=== PATIENT | male | born 1940 | race Caucasian/White ===

== ENCOUNTER → 2017-01-12 | Outpatient (CLI) | payer MEDICARE | END | disposition home or self-care (01) | LOC: PCVCCLINIC 12:58 | PROVIDERS: ATTEND Internal Medicine Cardiovascular Disease | DX: I10 Essential (primary) hypertension (principal); I25.10 Atherosclerotic heart disease of native coronary artery without angina pectoris; E78.00 Pure hypercholesterolemia, unspecified; R00.1 Bradycardia, unspecified; R09.89 Other specified symptoms and signs involving the circulatory and respiratory systems; R06.02 Shortness of breath; I50.9 Heart failure, unspecified; I35.0 Nonrheumatic aortic (valve) stenosis | CPT/HCPCS: 93005; G0463 ==

== ENCOUNTER → 2017-02-28 | Outpatient (CLI) | payer MEDICARE ==
[~2017-02-28] MED LIST: REGADENOSON 0.4 MG/5 ML DISP.SYRIN. IV ONE
== END | disposition home or self-care (01) ==
LOC: PCVCIMAG 08:50
PROVIDERS: ATTEND Internal Medicine Cardiovascular Disease
DX: I65.23 Occlusion and stenosis of bilateral carotid arteries (principal); I25.10 Atherosclerotic heart disease of native coronary artery without angina pectoris; Z95.5 Presence of coronary angioplasty implant and graft
CPT/HCPCS: 78452; 80061; 93005; 93017; 93880; A9500; G0463; J2785

== ENCOUNTER → 2017-09-14 | Outpatient (CLI) | payer MEDICARE | END | disposition home or self-care (01) | LOC: PCVCCLINIC 13:04 | PROVIDERS: ATTEND Internal Medicine Cardiovascular Disease | DX: I25.10 Atherosclerotic heart disease of native coronary artery without angina pectoris (principal); I10 Essential (primary) hypertension; I71.4 Abdominal aortic aneurysm, without rupture; I73.9 Peripheral vascular disease, unspecified; E78.00 Pure hypercholesterolemia, unspecified; I77.9 Disorder of arteries and arterioles, unspecified; R94.31 Abnormal electrocardiogram [ECG] [EKG]; I44.0 Atrioventricular block, first degree; R00.1 Bradycardia, unspecified; Z87.891 Personal history of nicotine dependence; Z79.82 Long term (current) use of aspirin; Z79.899 Other long term (current) drug therapy | CPT/HCPCS: 80061; 93005; G0463 ==

== ENCOUNTER → 2017-11-30 | Outpatient (CLI) | payer MEDICARE | END | disposition home or self-care (01) | LOC: PCVCIMAG 13:22 | DX: I65.23 Occlusion and stenosis of bilateral carotid arteries (principal); I73.9 Peripheral vascular disease, unspecified; K80.20 Calculus of gallbladder without cholecystitis without obstruction | CPT/HCPCS: 76700; 93880; 93925 ==

== ENCOUNTER → 2018-06-06 | Outpatient (CLI) | payer MEDICARE | END | disposition home or self-care (01) | LOC: PCVCCLINIC 15:22 | PROVIDERS: ATTEND Internal Medicine Cardiovascular Disease | DX: I25.10 Atherosclerotic heart disease of native coronary artery without angina pectoris (principal); I35.0 Nonrheumatic aortic (valve) stenosis; E78.00 Pure hypercholesterolemia, unspecified; I10 Essential (primary) hypertension; I77.9 Disorder of arteries and arterioles, unspecified; I73.9 Peripheral vascular disease, unspecified; Z87.891 Personal history of nicotine dependence; Z79.82 Long term (current) use of aspirin | CPT/HCPCS: 80061; 93005; G0463 ==

== ENCOUNTER → 2019-02-26 | Outpatient (CLI) | payer MEDICARE ==
--- NOTE | 2019-02-26 13:50 | PCVCIMAG ---
APPROVED REPORT Study performed: 02/26/2019 12:54:46 EXAM: Comprehensive 2D, Doppler, and color-flow Echocardiogram Patient Location: Echo lab Status: routine BSA: 2.04 HR: 49 bpmBP: 194/80 mmHg Rhythm: NSR Other Information Study Quality: Adequate Risk Factors: Cardiac Risk Factors: HTN, Hyperlipidemia Indications CAD Aortic Stenosis, Stent, PVD 2D Dimensions IVSd: 15.48 (7-11mm)LVOT Diam: 21.77 (18-24mm) LVDd: 53.74 mm PWd: 13.12 (7-11mm)Ascending Ao: 35.54 (22-36mm) LVDs: 45.42 (25-40mm) Left Atrium: 52.24 (27-40mm) Aortic Root: 29.18 mm LV Single Plane 4CH: 49.95 % LV Single Plane 2CH: 56.02 % Biplane EF: 54.5 % Volumes Left Atrial Volume (Systole) Single Plane 4CH: 81.25 mLSingle Plane 2CH: 68.84 mL LA ESV Index: 37.00 mL/m2 Aortic Valve AoV Peak Farzad.: 2.79 m/s AO Peak Gr.: 31.20 mmHgLVOT Max P.41 mmHg AO Mean Gr.: 16.63 mmHgLVOT Mean P.99 mmHg AO V2 Mean: 1.94 m/sLVOT Max V: 0.92 m/s AO V2 VTI: 76.69 cmLVOT Mean V: 0.68 m/s DARIUS (VTI): 1.17 vd2QSBU V1 VTI: 24.11 cm DARIUS Vmax: 1.23 cm2 SV (LVOT): 89.66 mL Mitral Valve E/A Ratio: 76.0 MV E Max Farzad.: 0.76 m/s MV A Farzad.: 0.01 m/s TDI E/Lateral E': 15.20E/Medial E': 19.00 Medial E' Farzad.: 0.04 m/s Lateral E' Farzad.: 0.05 m/s Pulmonary Vein P Vein S: 0.58 m/sP Vein A: 0.37 m/s P Vein D: 0.30 m/sP Vein A Dur.: 83.0 msec P Vein S/D Ratio: 1.93 Left Ventricle The left ventricle is normal size. There is normal LV segmental wall motion. Mild concentric left ventricular hypertrophy. Left ventricular systolic function is mildly decreased.global LVEF is 40-45%. The left ventricular diastolic function is normal. Right Ventricle The right ventricle is normal size. The right ventricular systolic function is normal. Atria Left atrium is mildly dilated. The right atrium size is normal. Aortic Valve Aortic valve is probably trileaflet. Aortic valve leaflets are moderately thickened. No aortic regurgitation is present. Peak Aortic gradient is 32mmHg. Mean gradient 9is 17mmhg with a calculated aortic valve area of 1.2cm2. Mitral Valve The mitral valve is normal in structure. Mild mitral annular calcification. Trace mitral regurgitation. No evidence of mitral valve stenosis. Tricuspid Valve The tricuspid valve is normal in structure. There is no tricuspid valve regurgitation noted. Pulmonic Valve The pulmonary valve is normal in structure. There is no pulmonic valvular regurgitation. Great Vessels The aortic root is normal in size. IVC is normal in size and collapses >50% with inspiration. Pericardium There is no pericardial effusion. <Conclusion> The left ventricle is normal size. Mild concentric left ventricular hypertrophy. Left ventricular systolic function is mildly decreased.global LVEF is 40-45%. The right ventricle is normal size. Left atrium is mildly dilated. Aortic valve is probably trileaflet. Aortic valve leaflets are moderately thickened. Peak Aortic gradient is 32mmHg. Mean gradient 9is 17mmhg with a calculated aortic valve area of 1.2cm2. The mitral valve is normal in structure. Mild mitral annular calcification. Trace mitral regurgitation. There is no tricuspid valve regurgitation noted. The aortic root is normal in size. There is no pericardial effusion.
--- NOTE | 2019-02-26 21:00 | PCVCIMAG ---
APPROVED REPORT Imaging Protocol: Rest Tc-99m/Stress Tc-99m 1 day Study performed: 02/26/2019 10:55:58 Indication: CAD, Aortic Stenosis Patient Location: Out-Patient Stress Nurse: Yennifer Moreno RN, Preethi Lindsey RN [place] Tech:Leia Montalvo [facility] Ht: 5 ft 11 in Wt: 190 lbs BSA: 2.06 m2 HR: 46 bpm BP: 194/80 mmHg BMI: 26.4 Rhythm: Marked Sinus Bradycardia, nonspecific ST-T abnormalities Medical History Medical History: Hyperlipidemia, HTN, CVD, PVD, CAD, Former Smoker Medications: Bytsolic, ASA, Atorvastatin, Lasix, Hydralazine, Mobic, Xanax Allergies: No known drug allergies Cardiac Risk Factors: Age Previous Cardiac Procedures: 2012 PCI - stent to RCA Pretest Chest Pain Characteristics: No chest pain Exercise History: Indeterminate Meds Held (24 hrs): Bytsolic Resting Data Rest SPECT myocardial perfusion imaging was performed in supine position 45 minutes following the intravenous injection of 10.5 mCi of Tc-99m Sestamibi. Time of rest injection: 1015 Date: 02/26/2019 Administration Route: IV Administration Site: Right AC Pharmacologic Stress Pharmacologic stress test was performed by injecting Regadenoson 0.4 mg IV push over 10-15 seconds immediately followed by the intravenous injection of 31.6 mCi of Tc-99m Sestamibi. Time of stress injection: 1130 Date: 02/26/2019 Administration Route: IV Administration Site: Right AC Gated Stress SPECT was performed 45 minutes after stress injection. The images were gated to evaluate regional wall motion and calculate left ventricular ejection fraction. Stress Test Details Stress Test: Pharmacologic stress testing performed using 0.4 mg of regadenoson per 5 mL given IV over 10 seconds. Reason for pharmacologic stress test: physical limitation. HRMax Heart Rate (APMHR): 140 bpm Resting HR: 46 bpmTarget HR (85% APMHR): 119 bpm Max HR Achieved: 67 bpm % of APMHR: 47 Recovery HR: 61 bpm BP Resting BP: 194/80 mmHg Max BP: 178/73 mmHg Recovery BP: 155/69 mmHg ECG Resting ECG: Marked Sinus Bradycardia, nonspecific ST-T abnormalities Stress ECG: Sinus Rhythm, nonspecific ST-T abnormalities Arrhythmia: None Recovery ECG: Sinus Rhythm, nonspecific ST-T abnormalities Clinical Reason for Termination: Completed protocol Stress Symptoms: Dyspnea Exercise duration: 0 min 55 sec Symptoms resolved with caffeine. Stress ECG Conclusion ECG: Non-ischemic Study Quality Study: Good Study Data Post stress, the left ventricular ejection was 38%.. SSS: 0 SRS: 0 SDS: 0 TID = 1.16. Perfusion Small sized area of moderate reversible ischemia involving the apical inferior left ventricle consistent with a right coronary artery distribution is better seen than on February 2017 study. Wall Motion Moderately decreased left ventricular systolic function. Nuclear Conclusion Small sized area of moderate reversible ischemia involving the apical inferior left ventricle consistent with a right coronary artery distribution is better seen than on February 2017 study. Post stress, the left ventricular ejection was 38%. Interpreted by: Justin Hernandes MD Electronically Approved: 02/26/2019 14:48:44 <Conclusion> ECG: Non-ischemic
== END | disposition home or self-care (01) ==
LOC: PCVCIMAG 09:51
PROVIDERS: ATTEND Internal Medicine Cardiovascular Disease
DX: I35.0 Nonrheumatic aortic (valve) stenosis (principal); I11.9 Hypertensive heart disease without heart failure; I25.10 Atherosclerotic heart disease of native coronary artery without angina pectoris; E78.5 Hyperlipidemia, unspecified; I73.9 Peripheral vascular disease, unspecified; Z87.891 Personal history of nicotine dependence; Z95.818 Presence of other cardiac implants and grafts; Z79.899 Other long term (current) drug therapy
CPT/HCPCS: 78452; 93017; 93306; 93880; A9500; G0463; J2785